=== PATIENT | female | born 1955 | race African-American/Black ===

== ENCOUNTER 2025-10-06 13:13 | Emergency (ER) | payer OTHER ==
[2025-10-06 15:29] LABS: #Basophils 0.04 10x3/uL (0.0-0.2); #Eosinophils 0.07 10x3/uL (0.0-0.7); #Monocytes 0.53 10x3/uL (0.11-0.59); #Neutrophils 3.98 10x3/uL (1.40-6.50); %Basophils 0.6 % (0.0-1.0); %Eosinophils 1.0 % (0.0-10.0); %Lymphocytes 34.3 % (21.0-51.0); %Monocytes 7.5 % (0.0-10.0); %Neutrophils 56.5 % (42.0-75.0); Hematocrit 45.4 % (36.0-47.0); Hemoglobin 15.0 g/dL (12.0-16.0); Mean Corpuscular Hemoglobin 27.1 pg (27.0-31.0); Mean Corpuscular Volume 82.1 fL (78.0-98.0); Platelet Count 145 10x3/uL (130-400); Red Blood Cell (RBC) Count 5.53 mill/uL (4.20-5.40); White Blood Cell (WBC) Count 7.05 10x3/uL (4.8-10.8)
[2025-10-06 15:46] LABS: ALT (SGPT) 11 U/L (Less than 34); AST (SGOT) 18 U/L (11-34); Albumin 3.6 g/dL (3.1-4.5); Alkaline Phosphatase 78 U/L (40-110); Anion Gap 16 mmol/L (10-20); BUN (Urea Nitrogen) 48 mg/dL (9.8-20.1); Bilirubin, Total 0.7 mg/dL (0.3-1.2); Calc. Creatinine Clearance 0 mL/min (70-130); Calcium 9.0 mg/dL (7.8-10.44); Carbon Dioxide 22 mmol/L (23-31); Chloride 106 mmol/L (98-107); Globulin 3.1 g/dL (2.4-3.5); Glucose 148 mg/dL (80-115); Potassium 4.4 mmol/L (3.5-5.1); Sodium 140 mmol/L (136-145)
== END 2025-10-06 16:07 | disposition home or self-care (01) ==
LOC: ERS 13:13
DX: J06.9 Acute upper respiratory infection, unspecified (principal); I12.0 Hypertensive chronic kidney disease with stage 5 chronic kidney disease or end stage renal disease; N18.6 End stage renal disease
CPT/HCPCS: 71045; 80053; 83880; 85025; 87428